=== PATIENT | female | born 1965 | race African-American/Black ===

== ENCOUNTER → 2017-11-28 | Outpatient (CLI) | payer OTHER | LOC: M.RAD 13:29 | DX: Z12.31 Encounter for screening mammogram for malignant neoplasm of breast (principal) ==

== ENCOUNTER → 2017-12-21 | Outpatient (CLI) | payer OTHER | LOC: M.CT 08:26 | DX: G43.111 Migraine with aura, intractable, with status migrainosus (principal) ==

== ENCOUNTER → 2018-01-31 | Outpatient (CLI) | payer OTHER ==
[2018-01-31 07:45] LABS: HEMATOCRIT 36.4 % (37.0-47.0); HEMOGLOBIN 12.2 gm/dL (12.0-15.0); MCH 30.6 pg (26.0-34.0); MCHC 33.6 g/dL (28.0-37.0); MCV 91.3 fL (80.0-100.0); RBC 3.99 mil/uL (4.20-5.00); RDW-CV 12.8 % (10.5-14.5); WBC 5.5 thou/uL (4.0-11.0)
[2018-01-31 08:08] LABS: ALBUMIN 3.3 g/dL (3.4-5.0); ALKALINE PHOSPHATASE 76 U/L (46-116); ANION GAP 9 mmol/L (7-16); BUN 10 mg/dL (7-18); CALCIUM 8.5 mg/dL (8.5-10.1); CHLORIDE 106 mmol/L (98-107); CHOLESTEROL 190 mg/dL (<200); CO2 27 mmol/L (21-32); CREATININE 0.6 mg/dL (0.6-1.3); GLUCOSE 118 mg/dL (70-99); HDL CHOLESTEROL 66 mg/dL (>40); LDL CHOLESTEROL 116 mg/dL (<100); POTASSIUM 4.1 mmol/L (3.5-5.1); SGOT 20 U/L (15-37); SGPT 25 U/L (30-65); SODIUM 142 mmol/L (136-145); TC:HDL 2.9 Ratio (Not establshd); TOTAL BILIRUBIN 0.1 mg/dL (<0.1-1.0); TOTAL PROTEIN 7.8 g/dL (6.4-8.2); TRIGLYCERIDE 41 mg/dL (<150); VLDL 8 mg/dL (<40)
[2018-01-31 08:09] LABS: SERUM ASSESSMENT Clear
[2018-02-01 02:10] LABS: GLYCOHEMOGLOBIN (HGB A1C) 6.3 % (4.8-5.6)
== END ==
LOC: M.LAB 05:49
DX: E03.9 Hypothyroidism, unspecified (principal); M79.7 Fibromyalgia

== ENCOUNTER → 2018-04-03 | Outpatient (CLI) | payer OTHER | LOC: M.LAB 06:46 | DX: E89.0 Postprocedural hypothyroidism (principal); N95.1 Menopausal and female climacteric states ==

== ENCOUNTER → 2018-11-26 | Outpatient (CLI) | payer OTHER | LOC: M.RAD 07:11 | DX: Z12.31 Encounter for screening mammogram for malignant neoplasm of breast (principal) ==

== ENCOUNTER → 2019-01-03 | Outpatient (CLI) | payer OTHER ==
[2019-01-03 10:04] LABS: HEMATOCRIT 38.9 % (37.0-47.0); HEMOGLOBIN 13.1 gm/dL (12.0-15.0); MCH 30.8 pg (26.0-34.0); MCHC 33.7 g/dL (28.0-37.0); MCV 91.2 fL (80.0-100.0); MPV 8.3 fl. (7.2-11.1); RBC 4.26 mil/uL (4.20-5.00); RDW-CV 13.2 % (10.5-14.5); WBC 6.1 thou/uL (4.0-11.0)
[2019-01-03 11:06] LABS: ALBUMIN 3.6 g/dL (3.4-5.0); ALKALINE PHOSPHATASE 87 U/L (46-116); ANION GAP 7 mmol/L (7-16); BUN 13 mg/dL (7-18); CALCIUM 8.7 mg/dL (8.5-10.1); CHLORIDE 102 mmol/L (98-107); CHOLESTEROL 245 mg/dL (<200); CO2 30 mmol/L (21-32); CREATININE 0.8 mg/dL (0.6-1.3); GLUCOSE 124 mg/dL (70-99); HDL CHOLESTEROL 79 mg/dL (>40); LDL CHOLESTEROL 157 mg/dL (<100); SGOT 18 U/L (15-37); SGPT 23 U/L (30-65); SODIUM 139 mmol/L (136-145); TC:HDL 3.1 Ratio (Not establshd); TOTAL BILIRUBIN 0.3 mg/dL (<0.1-1.0); TOTAL PROTEIN 8.2 g/dL (6.4-8.2); TRIGLYCERIDE 48 mg/dL (<150); VLDL 10 mg/dL (<40)
[2019-01-03 11:08] LABS: SERUM ASSESSMENT Clear
== END ==
LOC: M.LAB 09:24
PROVIDERS: Internal Medicine
DX: Z00.00 Encounter for general adult medical examination without abnormal findings (principal); M79.7 Fibromyalgia; E03.9 Hypothyroidism, unspecified

== ENCOUNTER → 2019-01-27 | Outpatient (CLI) | payer OTHER | LOC: M.LAB 08:01 | PROVIDERS: Nurse Practitioner Family | DX: R73.09 Other abnormal glucose (principal); I10 Essential (primary) hypertension ==

== ENCOUNTER → 2019-01-28 | Outpatient (CLI) | payer OTHER | LOC: M.LAB 14:50 | PROVIDERS: Obstetrics & Gynecology | DX: N95.1 Menopausal and female climacteric states (principal) ==

== ENCOUNTER → 2019-02-28 | Outpatient (CLI) | payer OTHER | LOC: M.LAB 10:39 | DX: N39.0 Urinary tract infection, site not specified (principal); R10.9 Unspecified abdominal pain ==

== ENCOUNTER → 2019-05-06 | Outpatient (CLI) | payer OTHER | LOC: M.RAD 10:12 | DX: G44.1 Vascular headache, not elsewhere classified (principal); Z88.0 Allergy status to penicillin ==

== ENCOUNTER → 2019-05-12 | Outpatient (CLI) | payer OTHER | LOC: M.MRI 05-09 07:30 | DX: G44.1 Vascular headache, not elsewhere classified (principal) ==

== ENCOUNTER → 2019-07-01 | Outpatient (CLI) | payer OTHER ==
[2019-07-02 02:06] LABS: GLYCOHEMOGLOBIN (HGB A1C) 6.5 % (4.8-5.6)
== END ==
LOC: M.LAB 09:21
PROVIDERS: Internal Medicine
DX: E11.9 Type 2 diabetes mellitus without complications (principal); I10 Essential (primary) hypertension; E03.9 Hypothyroidism, unspecified

== ENCOUNTER 2019-07-31 18:34 | Emergency (ER) | payer OTHER ==
[~2019-07-31] VITALS: Ht 149.9 cm; Wt 76.7 kg
[2019-07-31] MEDS ORDERED: LEVO-T50 MCG PO (18:41)
[2019-07-31] MEDS ORDERED: METFORMIN HCL500 M3 PO (18:41)
[2019-07-31] MEDS ORDERED: ZANAFLEX4 MG PO (21:15)
[2019-07-31] MEDS ORDERED: NAPROSYN500 MG PO (21:15)
[2019-07-31 21:28] VITALS: BP 136/77
== END 2019-07-31 21:29 | disposition home or self-care (01) ==
LOC: M.ERS 18:34
DX: S16.1XXA Strain of muscle, fascia and tendon at neck level, initial encounter (principal); S09.8XXA Other specified injuries of head, initial encounter; R07.89 Other chest pain; E89.0 Postprocedural hypothyroidism; Z88.0 Allergy status to penicillin; Z90.710 Acquired absence of both cervix and uterus; V89.2XXA Person injured in unspecified motor-vehicle accident, traffic, initial encounter; Y93.89 Activity, other specified; Y92.89 Other specified places as the place of occurrence of the external cause; Y99.8 Other external cause status

== ENCOUNTER → 2019-10-14 | Outpatient (CLI) | payer OTHER ==
[~2019-10-14] MED LIST: LEVO-T50 MCG PO; METFORMIN HCL500 M3 PO; NAPROSYN500 MG PO; ZANAFLEX4 MG PO
[2019-10-15 02:06] LABS: GLYCOHEMOGLOBIN (HGB A1C) 6.2 % (4.8-5.6)
== END ==
LOC: M.LAB 14:19
PROVIDERS: Internal Medicine
DX: E11.9 Type 2 diabetes mellitus without complications (principal)

== ENCOUNTER → 2019-11-10 | Outpatient (CLI) | payer OTHER | LOC: M.RAD 12:15 | DX: M47.812 Spondylosis without myelopathy or radiculopathy, cervical region (principal); M48.04 Spinal stenosis, thoracic region; M25.78 Osteophyte, vertebrae; I51.7 Cardiomegaly; M48.02 Spinal stenosis, cervical region ==

== ENCOUNTER → 2019-11-24 | Outpatient (CLI) | payer OTHER | LOC: M.RAD 07:39 | DX: Z12.31 Encounter for screening mammogram for malignant neoplasm of breast (principal) ==

== ENCOUNTER → 2020-07-06 | Outpatient (CLI) | payer OTHER ==
[2020-07-06 14:53] LABS: ABSOLUTE BASOPHILS 0.1 thou/uL (0.0-0.2); ABSOLUTE EOSINOPHILS 0.1 thou/uL (0.0-0.7); ABSOLUTE MONOCYTES 0.5 thou/uL (0.0-1.2); ABSOLUTE NEUTROPHILS 3.6 thou/uL (1.6-8.1); BASOPHILS 1.3 %; EOSINOPHILS 1.6 %; HEMATOCRIT 41.6 % (37.0-47.0); HEMOGLOBIN 13.8 gm/dL (12.0-15.0); LYMPHOCYTES 47.5 %; MCH 30.3 pg (26.0-34.0); MCHC 33.2 g/dL (28.0-37.0); MCV 91.3 fL (80.0-100.0); MONOCYTES 6.2 %; MPV 8.1 fl. (7.2-11.1); NUCLEATED RBCS 0 /100WBC; PLATELET COUNT* 303 thou/uL (150-400); POLYS 43.4 %; RBC 4.56 mil/uL (4.20-5.00); RDW-CV 13.6 % (10.5-14.5); WBC 8.3 thou/uL (4.0-11.0)
[2020-07-06 15:12] LABS: ALBUMIN 3.9 g/dL (3.4-5.0); ALKALINE PHOSPHATASE 78 U/L (46-116); ANION GAP 8 mmol/L (7-16); BUN 10 mg/dL (7-18); CALCIUM 7.5 mg/dL (8.5-10.1); CHLORIDE 99 mmol/L (98-107); CHOLESTEROL 338 mg/dL (<200); CO2 30 mmol/L (21-32); CREATININE 0.8 mg/dL (0.6-1.3); DIRECT BILIRUBIN 0.1 mg/dL (<0.1-0.3); GLUCOSE 92 mg/dL (70-99); HDL CHOLESTEROL 97 mg/dL (>40); LDL CHOLESTEROL 227 mg/dL (<100); POTASSIUM 3.4 mmol/L (3.5-5.1); SGOT 20 U/L (15-37); SGPT 24 U/L (30-65); SODIUM 137 mmol/L (136-145); TC:HDL 3.5 Ratio (Not establshd); TOTAL BILIRUBIN 0.3 mg/dL (<0.1-1.0); TOTAL PROTEIN 8.5 g/dL (6.4-8.2); TRIGLYCERIDE 74 mg/dL (<150); VLDL 15 mg/dL (<40)
[2020-07-06 15:13] LABS: SERUM ASSESSMENT Clear
== END ==
LOC: M.RAD 10:22 → M.LAB 10:22
DX: N63.20 Unspecified lump in the left breast, unspecified quadrant (principal); E03.9 Hypothyroidism, unspecified; I10 Essential (primary) hypertension; E55.9 Vitamin D deficiency, unspecified; E11.9 Type 2 diabetes mellitus without complications; L65.9 Nonscarring hair loss, unspecified; Z79.890 Hormone replacement therapy; Z79.899 Other long term (current) drug therapy